=== PATIENT | female | born 1980 | race Hispanic/Latino ===

== ENCOUNTER 2016-07-11 17:10 | Emergency (ER) | payer BC ==
[2016-07-11 17:11] VITALS: BMI 27.4
[2016-07-11 17:25] VITALS: BP 117/76; PULSE 68; RESP 20; TEMP 98.8; O2SAT 98
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
--- NOTE | 2016-07-12 09:30 | RAD ---
PROCEDURE: Radiographs of the Chest and Left Ribs. HISTORY: ant rib pain made worse with inspiration COMPARISON: None available. TECHNIQUE: Frontal radiograph of the chest and multiple oblique radiographs of the left ribs were obtained. FINDINGS: LEFT RIBS: No fracture or focal lesion visualized. LUNGS: Clear. PLEURA: No pneumothorax or pleural fluid. CARDIOVASCULAR: Normal sized heart. No pulmonary vascular congestion. OTHER FINDINGS: None. IMPRESSION: Unremarkable radiographs of the chest and left ribs. No left rib fracture.
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
--- NOTE | 2016-07-14 09:33 | CARD ---
APPROVED REPORT EKG Measurement Heart [id number] <Conclusion> Normal sinus rhythm Normal ECG
== END 2016-07-11 19:18 | disposition home or self-care (01) ==
LOC: H.ER 17:10
DX: R07.81 Pleurodynia (principal); M54.5 Low back pain; V43.52XA Car driver injured in collision with other type car in traffic accident, initial encounter; Y92.410 Unspecified street and highway as the place of occurrence of the external cause

== ENCOUNTER 2017-11-25 20:10 | Inpatient (IN) | payer BC ==
[2017-11-25 20:54] VITALS: BMI 26.6
[2017-11-25] MEDS ORDERED: Fentanyl/Bupivacaine HCl 250 ML EPI ONE (22:09)
[2017-11-25] MEDS ORDERED: Lactated Ringer's 1,000 ML IV ONE (22:09)
[2017-11-25] MEDS ORDERED: Oxytocin 30 UNIT 30 UNITS/500 ML BAG IV ONE (22:11)
[2017-11-25 22:14] LABS: BASO # 0.1 K/uL (0.0-0.2); BASO % 1.1 % (0.0-2.0); EOS % 0.4 % (0.0-4.0); HEMOGLOBIN 13.9 g/dL (12.0-16.0); LYMPH # 1.3 K/uL (1.0-4.3); LYMPH % 14.9 % (20.0-40.0); MEAN CELL VOLUME 90.6 fl (81.0-99.0); MEAN CORPUSCULAR HEMOGLOBIN 30.9 pg (27.0-31.0); MEAN CORPUSCULAR HGB CONC 34.1 g/dL (33.0-37.0); MONO # 0.5 K/uL (0.0-0.8); MONO % 5.2 % (0.0-10.0); NEUT # 6.8 K/uL (1.8-7.0); NEUT % 78.4 % (50.0-75.0); RBC 4.49 Mil/uL (3.80-5.20); RED CELL DISTRIBUTION WIDTH 14.1 % (11.5-14.5); WHITE BLOOD COUNT 8.6 K/uL (4.8-10.8)
[2017-11-25] MEDS ORDERED: Lactated Ringer's 1,000 ML IV SCH (22:15)
[2017-11-25] MEDS ORDERED: Lidocaine 2% MPF (5 ml) Inj ONE ×2 (22:49→23:06)
[2017-11-25] MEDS ORDERED: Benzocaine/Menthol SPRAY TOP PRN (23:17)
[2017-11-26] MEDS ORDERED: Oxycodone/Acetaminophen 5/325 mg Tab PO ONE (01:16)
[2017-11-26 06:23] LABS: BASO % 0.3 % (0.0-2.0); EOS % 0.1 % (0.0-4.0); HEMOGLOBIN 11.9 g/dL (12.0-16.0); LYMPH % 9.1 % (20.0-40.0); MEAN CELL VOLUME 89.8 fl (81.0-99.0); MEAN CORPUSCULAR HEMOGLOBIN 31.6 pg (27.0-31.0); MEAN CORPUSCULAR HGB CONC 35.2 g/dL (33.0-37.0); MEAN PLATELET VOLUME 8.4 fl (7.2-11.7); MONO # 0.6 K/uL (0.0-0.8); MONO % 5.8 % (0.0-10.0); NEUT # 9.3 K/uL (1.8-7.0); NEUT % 84.7 % (50.0-75.0); PLATELET COUNT 158 K/uL (130-400); RBC 3.76 Mil/uL (3.80-5.20); RED CELL DISTRIBUTION WIDTH 14.1 % (11.5-14.5)
--- NOTE | 2017-11-26 08:05 | OBPPN ---
Datetime: 11/26/2017 05:52 PP Pain Prov: Within normal limits PP Nausea Prov: Denies PP Flatus Prov: Yes PP BM Prov: No PP Breasts Prov: Not Done PP Heart Prov: Normal PP Lungs Prov: Normal PP Abdomen/Uterus Prov: Normal PP Lochia Prov: Normal PP Vulva/Perineum Prov: Normal PP CVA Tenderness Prov: Not Done PP Extremities Prov: Normal PP C/S Incision Prov: Not Applicable PP Progress Prov: Normal PP Impression Prov: Normal progression PP Plan Prov: Continue present management PP Progress Note Prov: PPD 1 S: 37 yo s/p NVD on 11/25/2017 at 22:42. Pt. is seen and examined at bedside this AM. No sign ificant overnight events. Pt reports occasional abdominal pain, but well controlled with pain meds. P t is ambulating without any difficulties. Breast feeding baby. Tolerating PO diet. Lochia is similar to light menses in volume. Voiding freely, no bowel movement, but passing gas per rectum. Denies feve r, chills, diarrhea, nausea, vomiting, chest pain, dyspnea, and dizziness. O: VS: stable GEN: NAD Cardio: S1S2, no M/G/R Resp: clear air entry bilaterally. Abdomen: BS+, NT, Uterus is firm and at the level of the umbilicus. EXT: No edema, calves nontender to palpation. NEURO/PSYCHI: AAOx3 Assessment/Plan: 37 yo s/p NVD on 11/25/2017 at 22:42. Pt remains afebrile, tolerating pain w ith medication, tolerating PO intake, doing well on PPD1. OOB with caution 1. SCDs for DVT prophylaxis, pt ambulating 2. Ibuprofen 600mg for pain. 3. Colace 100mg PO BID constipation 4. Encourage and ambulating 5. Follow Up: CBC post-delivery 6. Anticipated d/c to home, 11/27/2017. OB Hospitalist Addendum: Pt seen and examined by me. Agree w/ above. PPD 1 s/p VD, doing well, b reast feeding. Continue current care. (ES) --- Ayanna Byrnes MD PGY-1 IP PP Procedures: None Vital Signs Provider PP: Reviewed; Within Normal Limits
--- NOTE | 2017-11-26 08:39 | OBADHP ---
Datetime: 11/25/2017 22:12 Admit Comment, IP Provider: 37 yo with IUP @ 41.2 based on CHASITY 11/16/17 presents because of c ontractions every 4-5 minutes at home and mucus plug release at 6p.m. She reports good movement . Denies vaginal bleeding and loss of fluid. Patient follows with Dr. Butler but states she wants to have her baby here at [facility]. Last appointment was 11/24/17 and u/s was performed yesterday and show ed anterior placenta with vertex presentation. Exam yesterday in the office was /-2. ROS: negative except for stated above. OBHx: 1 - no complications. Family Hx: Denies PMH: Denies Surgical history: Denies Allergies: N.K.D.A Medications: PNV Labs: HIV: Negative. HbsAg: Negative. GBS: Negative. Rubella: Immune Gc/Cl: Negative. RPR: Negative. ABO: O+ Antibody: Negative. Physical exam: In no acute distress. Heart: S1 and S2 appreciated on exam. No murmurs, gallops or rubs. Lungs: Clear air entry bilaterally. No wheezes. Abdomen: Soft, non-tender to palpation. Gravid. Cervical Exam: performed with Flattening Press Operator. No lesions on inspection. Dilated 2/90% effacement /-2 fe sandip presentation. FHT: 120 baseline; No accelerations; No decelerations; Contractions every 6 minutes. Category 2 tr acing. Assessment: 37 yo with IUP @ 41.2 based on CHASITY 11/16/17 presents because of contractions ev thea 4-5 minutes at home and mucus plug release at 6p.m- found with an minimally changed cervical exam from yesterday. Plan: - Continous monitoring. - Recheck cervical exam in 2-3 hours. Recheck @ 22:13 -Cervical exam: 6-90/-3 FHT: 125 baseline; Moderate variability; Accelerations present; No Decelerations; Contractions chaparro ry 3-4 minutes. Category 1 tracing - Patient will be admitted - F/U CBC and T_S Case discussed with Dr. Whitehead. ---Ayanna Byrnes, PGY-1 Family Medicine. Pelvic Type - PN: Adequate Extremities - PN: Normal Abdomen - PN: Normal Back - PN: Not Done Breast - PN: Normal Lungs - PN: Normal Heart - PN: Normal Thyroid - PN: Not Done Neurologic - PN: Not Done HEENT - PN: Not Done General - PN: Normal FHR - Baseline A Provider: 125 Vital Signs Provider: Reviewed; Within Normal Limits IP Chief Complaint: Uterine contractions; Maternal discomfort NICHD Variability Prov Fetus A: Moderate 6-25bpm NICHD Accel Fetus A IP Provider: [id number] FHR Category Provider Fetus A: Category I NICHD Decel Fetus A IP Provider: None Dilatation, Provider: 6-7 Effacement, Provider: 90 Station, Provider: -1 Genitourinary Exam: Normal DTRs - PN: Normal EGA AdmitDate IP: 41.2 IP Adm Impression: Postterm, intrauterine IP Admit Plan: Admit to unit; Initiate labor protocol Datetime: 11/25/2017 20:41 Contraction Comments Provider: every 6 minutes
--- NOTE | 2017-11-26 08:39 | OBDS ---
DELIVERY PERSONNEL Delivery Doctor: Rafaela Whitehead MD Bonded Structures Repairer: Roxanne Forrester RN Resident: Dr. Muro MATERNAL INFORMATION Delivery Anesthesia: Local Medications in Delivery: Oxytocin Estimated Blood Loss (ml): 300 Placenta Cultured: No Maternal Complications: None Provider Comments: Normal spontaneous vaginal delivery. Patient delivered viable male with Ap gars of 9 and 9 at one and 5 minutes respectively. delivered via ROSARIO position. Placenta delive red spontaneously. Laceration repaired, as above. Uterus firm and appropriately hemostatic following delivery. Patient tolerated delivery and repair well. No complications. Estimated blood loss 300 mL. LABOR SUMMARY EDC: 11/16/2017 00:00 No. Babies in Womb: 1 Attempted: No Labor Anesthesia: None LABOR INFORMATION Reason for Induction: Not Applicable Onset of Labor: 11/25/2017 18:00 Complete Dilatation: 11/25/2017 22:40 Oxytocin: N/A Group B Beta Strep: Negative Steroids Given: None Reason Steroids Not Administered: Not Applicable MEMBRANES Membranes Rupture Method: Spontaneous Rupture of Membranes: 11/25/2017 22:10 Length of Rupture (hrs): 0.53 Amniotic Fluid Color: Clear Amniotic Fluid Amount: Copious Amniotic Fluid Odor: Normal STAGES OF LABOR Stage 1 hrs: 4 Stage 1 min: 40 Stage 2 hrs: 0 Stage 2 min: 2 Stage 3 hrs: 24 Stage 3 min: 5 Total Time in Labor hrs: 28 Total Time in Labor min: 47 VAGINAL DELIVERY Episiotomy: None Laceration Extension: Second Degree Laceration Type: Perineal Laceration Repair: Yes Laceration Repair Note: Second-degree midline perineal laceration. Area infiltrated with 1% lidocain e. Laceration repaired with 2.0 repeated without complication. Patient tolerated repair well. Initial Vag Sponge Count: 5 Final Vag Sponge Count: 5 Initial Vag Sharps Count: 4 Final Vag Sharps Count: 4 Sponge Count Correct: Yes Sharps Count Correct: Yes BABY A INFORMATION Delivery Date/Time: 11/25/2017 22:42 Method of Delivery: Vaginal Born in Route : No : N/A Forceps: N/A Vacuum Extraction: N/A Shoulder Dystocia : No SHOULDER DYSTOCIA BABY A Infant Delivery Date/Time: 11/25/2017 22:42 PRESENTATION/POSITION BABY A Presentation: Cephalic Cephalic Presentation: Vertex Vertex Position: Left Occipital Anterior Breech Presentation: N/A PLACENTA INFORMATION BABY A Placenta Delivery Time : 11/26/2017 22:47 Placenta Method of Delivery: Spontaneous Placenta Status: Delivered SCORES BABY A Heart Rate 1 min: >100 bpm Resp Effort 1 min: Good Cry Reflex Irritability 1 min: Cough or Sneeze or Pulls Away Muscle Tone 1 min: Active Motion Color 1 min: Body Spur, Extremities Blue Resuscitation Effort 1 min: Tactile Stimulation SCORE 1 MIN: 9 Heart Rate 5 min: >100 bpm Resp Effort 5 min: Good Cry Reflex Irritability 5 min: Cough or Sneeze or Pulls Away Muscle Tone 5 min: Active Motion Color 5 min: Body Spur, Extremities Blue Resuscitation Effort 5 min: Tactile Stimulation SCORE 5 MIN: 9 INFORMATION BABY A Gestational Age at Delivery: 41.2 Gestational Status: Post-term Infant Outcome : Liveborn Infant Condition : Stable Sex: Male IDENTIFICATION/MEDS BABY A ID Band Location: Left Leg; Left Arm WEIGHT/LENGTH BABY A Birthweight (gms): 3530 Infant Weight (lb): 7 Weight (oz): 12 CORD INFORMATION BABY A No. Cord Vessels: 3 Nuchal Cord : Around Neck x1, Loose Cord Blood Taken: Yes Suction: None ASSESSMENT BABY A Complications: None Physical Findings at Delivery: Within Normal Limits Infant Respirations: Appears Normal Manager Copy/ALS Called : No Transferred To: Remains with Mother
--- NOTE | 2017-11-26 08:45 | OBDS ---
DELIVERY PERSONNEL Delivery Doctor: Rafaela Whitehead MD Consultative Sales Associate: Roxanne Forrester RN Resident: Dr. Muro MATERNAL INFORMATION Delivery Anesthesia: Local Medications in Delivery: Oxytocin Estimated Blood Loss (ml): 300 Placenta Cultured: No Maternal Complications: None Provider Comments: Normal spontaneous vaginal delivery. Patient delivered viable male with Ap gars of 9 and 9 at one and 5 minutes respectively. delivered via ROSARIO position. Placenta delive red spontaneously. Laceration repaired, as above. Uterus firm and appropriately hemostatic following delivery. Patient tolerated delivery and repair well. No complications. Estimated blood loss 300 mL. LABOR SUMMARY EDC: 11/16/2017 00:00 No. Babies in Womb: 1 Attempted: No Labor Anesthesia: None LABOR INFORMATION Reason for Induction: Not Applicable Onset of Labor: 11/25/2017 18:00 Complete Dilatation: 11/25/2017 22:40 Oxytocin: N/A Group B Beta Strep: Negative Group B Beta Strep: Negative Steroids Given: None Reason Steroids Not Administered: Not Applicable MEMBRANES Membranes Rupture Method: Spontaneous Membranes Rupture Method: Spontaneous Rupture of Membranes: 11/25/2017 22:10 Rupture of Membranes: 11/25/2017 22:10 Length of Rupture (hrs): 0.53 Length of Rupture (hrs): 0.53 Amniotic Fluid Color: Clear Amniotic Fluid Color: Clear Amniotic Fluid Amount: Copious Amniotic Fluid Amount: Copious Amniotic Fluid Odor: Normal Amniotic Fluid Odor: Normal STAGES OF LABOR Stage 1 hrs: 4 Stage 1 min: 40 Stage 2 hrs: 0 Stage 2 min: 2 Stage 3 hrs: 24 Stage 3 min: 5 Total Time in Labor hrs: 28 Total Time in Labor min: 47 VAGINAL DELIVERY Episiotomy: None Laceration Extension: Second Degree Laceration Type: Perineal Laceration Repair: Yes Laceration Repair Note: Second-degree midline perineal laceration. Area infiltrated with 1% lidocain e. Laceration repaired with 2.0 repeated without complication. Patient tolerated repair well. Initial Vag Sponge Count: 5 Final Vag Sponge Count: 5 Initial Vag Sharps Count: 4 Final Vag Sharps Count: 4 Sponge Count Correct: Yes Sharps Count Correct: Yes BABY A INFORMATION Delivery Date/Time: 11/25/2017 22:42 Method of Delivery: Vaginal Born in Route : No : N/A Forceps: N/A Vacuum Extraction: N/A Shoulder Dystocia : No SHOULDER DYSTOCIA BABY A Infant Delivery Date/Time: 11/25/2017 22:42 PRESENTATION/POSITION BABY A Presentation: Cephalic Cephalic Presentation: Vertex Vertex Position: Left Occipital Anterior Breech Presentation: N/A PLACENTA INFORMATION BABY A Placenta Delivery Time : 11/26/2017 22:47 Placenta Method of Delivery: Spontaneous Placenta Status: Delivered SCORES BABY A Heart Rate 1 min: >100 bpm Resp Effort 1 min: Good Cry Reflex Irritability 1 min: Cough or Sneeze or Pulls Away Muscle Tone 1 min: Active Motion Color 1 min: Body [place], Extremities Blue Resuscitation Effort 1 min: Tactile Stimulation SCORE 1 MIN: 9 Heart Rate 5 min: >100 bpm Resp Effort 5 min: Good Cry Reflex Irritability 5 min: Cough or Sneeze or Pulls Away Muscle Tone 5 min: Active Motion Color 5 min: Body [place], Extremities Blue Resuscitation Effort 5 min: Tactile Stimulation SCORE 5 MIN: 9 INFORMATION BABY A Gestational Age at Delivery: 41.2 Gestational Status: Post-term Outcome : Liveborn Condition : Stable Infant Sex: Male IDENTIFICATION/MEDS BABY A ID Band Location: Left Leg; Left Arm WEIGHT/LENGTH BABY A Birthweight (gms): 3530 Weight (lb): 7 Weight (oz): 12 CORD INFORMATION BABY A No. Cord Vessels: 3 Nuchal Cord : Around Neck x1, Loose Cord Blood Taken: Yes Suction: None ASSESSMENT BABY A Infant Complications: None Physical Findings at Delivery: Within Normal Limits Infant Respirations: Appears Normal Poultry Scientist/ALS Called : No Transferred To: Remains with Mother
[2017-11-26 09:12] LABS: LYMPHOCYTE 8 % (20-50); MONOCYTE 6 % (0-10); NEUTROPHIL 86 % (42-75); PLATELET ESTIMATE NORMAL (NORMAL); TOTAL CELLS COUNTED 100
[2017-11-26 09:13] LABS: ANISOCYTOSIS SLIGHT; LARGE PLATELETS PRESENT; OVALOCYTES MODERATE; TEARDROP CELLS SLIGHT
[2017-11-27 19:01] VITALS: BP 108/69; PULSE 76; RESP 20; TEMP 98.1; O2SAT 100
== END 2017-11-27 13:05 | disposition home or self-care (01) | DRG 807 ==
LOC: H.EROB2 20:10 → H.L&D 22:09 → H.OB/GYN 11-26 00:40
PROVIDERS: ADMIT Obstetrics & Gynecology; ATTEND Obstetrics & Gynecology
PROC: 4A1HXCZ Monitoring of Products of Conception, Cardiac Rate, External Approach (ICD-10-PCS; principal; 2017-11-25)
PROC: 10E0XZZ Delivery of Products of Conception, External Approach (ICD-10-PCS; 2017-11-25)
PROC: 0KQM0ZZ Repair Perineum Muscle, Open Approach (ICD-10-PCS; 2017-11-25)
DX: O48.0 Post-term pregnancy (principal); Z37.0 Single live birth; O69.81X0 Labor and delivery complicated by cord around neck, without compression, not applicable or unspecified; O70.1 Second degree perineal laceration during delivery; Z3A.41 41 weeks gestation of pregnancy

== ENCOUNTER 2018-01-01 21:01 | Emergency (ER) | payer BC ==
[2018-01-01 21:01] VITALS: BMI 26.6
[2018-01-01 21:07] VITALS: BP 121/75; PULSE 77; RESP 18; TEMP 99.6; O2SAT 98
[2018-01-01] MEDS ORDERED: Lidocaine 5% Patch TD STA (21:27)
[2018-01-01] MEDS ORDERED: Lidocaine 5% Patch TD ONE (21:41)
--- NOTE | 2018-01-01 21:48 | ED PDOC ---
HPI: Back Time Seen by Provider: 01/01/18 21:11 Chief Complaint (Nursing): Back Pain Chief Complaint (Provider): Back Pain History Per: Patient History/Exam Limitations: no limitations Onset/Duration Of Symptoms: Sudden Onset Additional Complaint(s): 37 y/o female with no significant medical history who is post x1 month, presents to the ED complaining of sudden onset lower back and tailbone pain after slipping on a wet floor and landing directly on her buttocks in a seated position. Patient reports pain is sharp and constant which worsens with walking and pain radiates to her bilateral upper legs. patient denies numbness, weakness, incontinence or retention for both urination and bowel movements. Patient has not taken anything for pain. Patient states that pain has persisted despite rest thus prompting ED visit. PMD: None but follows with her OBGYN, Dr. Sales Past Medical History Reviewed: Historical Data, Nursing Documentation, Vital Signs Vital Signs: Last Vital Signs Temp 99.6 F 01/01/18 21:03 Pulse 77 01/01/18 21:03 Resp 18 01/01/18 21:03 BP 121/75 01/01/18 21:03 Pulse Ox 98 01/01/18 21:03 - Medical History PMH: No Chronic Diseases Denies: Depression, Diabetes, HTN - Surgical History Surgical History: No Surg Hx - Family History Family History: States: Unknown Family Hx - Social History Current smoker - smoking cessation education provided: No - Immunization History Hx Tetanus Toxoid Vaccination: Yes - Home Medications Home Medications: Ambulatory Orders Medication Instructions Recorded Docusate [Colace] 100 mg PO BID cap 11/27/17 Ibuprofen [Motrin Tab] 600 mg PO Q6 PRN tab 11/27/17 Acetaminophen [Tylenol Extra 1,000 mg PO Q6 PRN #100 tablet 01/01/18 Strength] Ibuprofen [Motrin Tab] 600 mg PO Q8 PRN #60 tab 01/01/18 Lidocaine 5% [Lidoderm] 1 ea TD DAILY PRN #20 patch 01/01/18 Non-Formulary 1 ea .ROUTE PRN PRN #1 ea 01/01/18 - Allergies Allergies/Adverse Reactions: Allergies Allergy/AdvReac Type Severity Reaction Status Date / Time No Known Allergies Allergy Verified 01/13/16 22:32 Review of Systems ROS Statement: Except As Marked, All Systems Reviewed And Found Negative (as per HPI otherwise negative) Gastrointestinal: Negative for: Diarrhea, Constipation Genitourinary Female: Negative for: Frequency, Incontinence Musculoskeletal: Positive for: Other (buttocks and tail bone pain) Neurological: Negative for: Weakness, Numbness Physical Exam - Reviewed Nursing Documentation Reviewed: Yes Vital Signs Reviewed: Yes - Physical Exam Appears: Positive for: In Acute Distress (moderate painful distress; appears tired) Head Exam: Positive for: ATRAUMATIC, NORMOCEPHALIC Skin: Positive for: Warm, Dry Pulses-Dorsalis Pedis (L): 2+ Pulses-Dorsalis Pedis (R): 2+ Gastrointestinal/Abdominal: Positive for: Soft. Negative for: Tenderness, D istended Back: Positive for: Vertebral Tenderness (tenderness to palpation at midline lower lumbar area with no step off or crepitus), Decreased ROM, Other (tenderness to palpation to coccygeal region, tenderness to palpation bilateral SI joint). Negative for: Muscle Spasm Extremity: Positive for: Normal ROM, Other (strong bilateral pedal pulse). Negative for: Deformity Neurologic/Psych: Positive for: Alert, Other (5/5 bilateral lower extremity strength; no saddle anesthesia). Negative for: Motor/Sensory Deficits - ECG O2 Sat by Pulse Oximetry: 98 (RA) Pulse Ox Interpretation: Normal Medical Decision Making Medical Decision Making: Time: 21:27 Initial Impression: lower back pain no fracture Initial Plan: * Lidocaine * Motrin 600 mg PO * Tylenol 975 mg PO * RAD - LS Spine * RAD Sacrum Xrays demonstrate coccygeal fracture, distal sacrum. No dislocation DW pt findings and plan of care. Ambulated out of ER with minimal assistance. Scribe Attestation: Documented by German Hernandez acting as a scribe for Brianne Mijares MD. Provider Scribe Attestation: All medical record entries made by the Scribe were at my direction and personally dictated by me. I have reviewed the chart and agree that the record accurately reflects my personal performance of the history, physical exam, medical decision making, and the department course for this patient. I have also personally directed, reviewed, and agree with the discharge instructions and disposition. Disposition - Clinical Impression Clinical Impression: Tailbone injury - Disposition Referrals: Kayla Hernandes MD [Staff Provider] - (FOLLOW UP WITH ORTHOPEDIST NEXT WEEK FOR FURTHER EVALUATION) Disposition: Routine/Home Disposition Time: 21:45 Condition: STABLE Prescriptions: Acetaminophen [Tylenol Extra Strength] 1,000 mg PO Q6 PRN #100 tablet PRN Reason: FEVER OR PAIN Ibuprofen [Motrin Tab] 600 mg PO Q8 PRN #60 tab PRN Reason: Pain, Moderate (4-7) Lidocaine 5% [Lidoderm] 1 ea TD DAILY PRN #20 patch PRN Reason: PAIN Non-Formulary 1 ea .ROUTE PRN PRN #1 ea PRN Reason: TAILBONE PAIN Instructions: Coccyx Fracture (DC)
--- NOTE | 2018-01-02 10:04 | RAD ---
Date of service: 01/01/2018 PROCEDURE: Radiographs of the Lumbar Spine. HISTORY: pain sp fall COMPARISON: Comparison made with prior study 07/11/2016 FINDINGS: BONES: No fractures. Vertebral bodies normal stature. There is very slight levoscoliosis centered at the L1-L2 level. There is also minimal straightening of the normal lumbar lordosis. Vertebral bodies otherwise exhibit alignment.. DISC SPACES: Disc space heights maintained.. OTHER FINDINGS: None. IMPRESSION: No acute fractures. Minor levoscoliosis.
--- NOTE | 2018-01-02 10:09 | RAD ---
Date of service: 01/01/2018 PROCEDURE: Radiographs of the Sacrum and Coccyx HISTORY: Status post fall with pain COMPARISON: Correlation made concurrent radiographs of the lumbar spine.. TECHNIQUE: Frontal and lateral views of the sacrum and coccyx FINDINGS: BONES: Questionable fracture of the distal sacrum/coccyx. Note and is again made small sclerotic focus the left acetabular region likely representing bone island or SACROILIAC JOINTS: Unremarkable. OTHER FINDINGS: None. IMPRESSION: Questionable fracture of the distal sacrum/coccyx junction. Consider follow-up CT scan or MRI.
== END 2018-01-01 22:45 | disposition home or self-care (01) ==
LOC: H.ER 21:01
DX: S39.92XA Unspecified injury of lower back, initial encounter (principal); W01.0XXA Fall on same level from slipping, tripping and stumbling without subsequent striking against object, initial encounter